=== PATIENT | male | born 1980 | race Caucasian/White ===

== ENCOUNTER 2021-01-11 01:57 | Emergency (ER) | payer BC ==
[2021-01-11] MEDS ORDERED: Diphtheria,Pertussis(Acell),Tetanus Vaccine 0.5 ML Syringe IM ONE (02:17)
--- NOTE | 2021-01-11 02:24 | EDM.PDOC ---
ED HPI GENERAL MEDICAL PROBLEM - General Chief Complaint: Laceration Stated Complaint: TOE LAC Time Seen by Provider: 01/11/21 02:13 Source of Information: Reports: Patient History Limitations: Reports: No Limitations - History of Present Illness INITIAL COMMENTS - FREE TEXT/NARRATIVE: The patient presents with a laceration to the base of the left 5th and 4th toes. He was walking down some steps and he stubbed his toes. He is not sure of his last tetanus. He does not think they are broken. Onset: Sudden Duration: Minutes: Location: Reports: Lower Extremity, Left (foot at the base of the 5th and 4th toes) Quality: Reports: Burning Severity: Mild Improves with: Reports: None Worsens with: Reports: None Associated Symptoms: Reports: No Other Symptoms Left Toe-Little Pain Score (Numeric/FACES): 2 - Related Data Allergies Allergy/AdvReac Type Severity Reaction Status Date / Time No Known Allergies Allergy Verified 01/11/21 02:21 ED ROS GENERAL - Review of Systems Review Of Systems: See Below Constitutional: Reports: No Symptoms HEENT: Reports: No Symptoms Respiratory: Reports: No Symptoms Cardiovascular: Reports: No Symptoms Endocrine: Reports: No Symptoms GI/Abdominal: Reports: No Symptoms : Reports: No Symptoms Musculoskeletal: Reports: Other (laceration to the left foot) ED EXAM, SKIN/RASH Exam: See Below Exam Limited By: No Limitations General Appearance: Alert, No Apparent Distress Ears: Normal External Exam Nose: Normal Inspection Head: Atraumatic, Normocephalic Neck: Normal Inspection Respiratory/Chest: No Respiratory Distress Extremities: Other (0.5cm laceration at the base of the 4th and 5th left toes. There is not tenderness to the toes.) ED SKIN PROCEDURES - Laceration/Wound Repair Left Foot Appearance: Superficial Distal NVT: Neuro & Vascular Intact Skin Prep: Saline Exploration/Debridement/Repair: Wound Explored, In a Bloodless Field, Explored to Base Closed with: Wound Adhesive Lac/Wound length In cm: 1 Tetanus Status Addressed: Yes Complications: No Course - Vital Signs Last Recorded V/S: Last Vital Signs Temp 96.9 F 01/11/21 02:11 Pulse 66 01/11/21 02:11 Resp 20 01/11/21 02:11 BP 124/80 01/11/21 02:11 Pulse Ox 96 01/11/21 02:11 - Orders/Labs/Meds Orders: Active Orders 24 hr Category Date Time Status Vaccine to be Administered/Admin Charge [RC] ASDIRECTED Care 01/11/21 02:18 Active Meds: Medications Discontinued Medications Generic Name Dose Route Start Last Admin Trade Name Иван PRN Reason Stop Dose Admin Diphtheria/Tetanus/Acell Pertussis 0.5 ml 01/11/21 02:17 Diphtheria,Pertussis(Acell),Tetanus Vaccine 0.5 Ml Syringe IM 01/11/21 02:18 .ONCE ONE - Re-Assessments/Exams Free Text/Narrative Re-Assessment/Exam: 01/11/21 02:24 I used adhesive to close the wounds and I updated his tetanus. Departure - Departure Time of Disposition: 02:40 Disposition: Home, Self-Care 01 Condition: Good Clinical Impression: Foot laceration Qualifiers: Encounter type: initial encounter Laterality: left Qualified Code(s): S91.312A - Laceration without foreign body, left foot, initial encounter - Discharge Information *PRESCRIPTION DRUG MONITORING PROGRAM REVIEWED*: Not Applicable *COPY OF PRESCRIPTION DRUG MONITORING REPORT IN PATIENT YUNI: Not Applicable Referrals: PCP,None [Primary Care Provider] - Forms: ED Department Discharge Additional Instructions: Let the adhesive set up for a couple hours and then you can wash your foot like normal. The adhesive will wear off over the next 10 to 14 days. Look for any signs of infection such as redness, swelling, pain or drainage. If you see any of these signs please return of see your doctor. You may need oral antibiotics. Your tetanus has been updated. It is good for 10 years. Sepsis Event Note (ED) - Evaluation Sepsis Screening Result: No Definite Risk - Focused Exam Vital Signs: Vital Signs Temp Pulse Resp BP Pulse Ox 01/11/21 02:11 96.9 F 66 20 124/80 96 - My Orders Last 24 Hours: My Active Orders 01/11/21 02:18 Vaccine to be Administered/Admin Charge [RC] ASDIRECTED - Assessment/Plan Last 24 Hours: My Active Orders 01/11/21 02:18 Vaccine to be Administered/Admin Charge [RC] ASDIRECTED
== END 2021-01-11 03:00 | disposition home or self-care (01) ==
LOC: JD.ED 01:57
DX: S91.312A Laceration without foreign body, left foot, initial encounter (principal); Z23 Encounter for immunization; W22.8XXA Striking against or struck by other objects, initial encounter
CPT/HCPCS: 12001; 90471; 90715; 99282-25